=== PATIENT | male | born 1940 | race Caucasian/White ===

== ENCOUNTER 2023-09-24 15:01 | Inpatient (IN) | payer MEDICARE, SELFPAY ==
[2023-09-24 17:38] LABS: Estimated Glomerular Filt Rate 50
[2023-09-24] MEDS: SACUBITRIL/VALSARTAN 24-26 MG TABLET 0.5 TAB PO (21:46)
[2023-09-24] MEDS: CIPROFLOXACIN 500 MG TAB PO (21:47)
[2023-09-25] VITALS: BP 143/86; PULSE 84; RESP 16; TEMP 37.1; O2SAT 97
[2023-09-25 08:00] VITALS: BP 131/86; PULSE 84; RESP 16; TEMP 36.8; O2SAT 98
[2023-09-25 08:44] VITALS: PULSE 84
[2023-09-25] MEDS: SACUBITRIL/VALSARTAN 24-26 MG TABLET 0.5 TAB PO ×2 (08:44→20:56)
[2023-09-25] MEDS: METOPROLOL SUCCINATE EXT REL 25 MG TABCR PO (08:44)
[2023-09-25] MEDS: CHOLECALCIFEROL 1,000 UNITS TABLET 4000 UNITS PO (08:45)
[2023-09-25] MEDS: CIPROFLOXACIN 500 MG TAB PO ×2 (08:46→20:56)
[2023-09-25] MEDS: ASPIRIN 325 MG ENTERIC TABLET PO (08:46)
[2023-09-25] MEDS: SIMVASTATIN 10 MG TABLET 20 MG PO (08:46)
[2023-09-25] MEDS: allopurinoL 300 MG TABLET PO (08:47)
--- NOTE | 2023-09-25 10:41 | PM.IMHP ---
H&P: HPI History of Present Illness Date/Time: 09/25/23 10:41 Chief Complaint: Rhabdomyolysis, fall, weakness Narrative: This is an 82 year old male with a past medical history of prostate cancer status radiation, gout, HTN, HLD, stroke with left sided residual, and kidney stones who presented to a hospital in [place] via EMS after being found down at home by his friend. According to Mr Jesse, he fell in his bathroom, unable to get up and laid there until he was found the following day by his friend. From [facility] he was transferred to [facility] with a diagnosis of rhabdomyolysis, elevated troponin, and ROSA. During his hospitalization he was treated with IV fluids and IV zosyn for pseudomonas bacteremia, transitioning to a 10 day course of ciprofloxacin. His troponin was elevated at 10.98 without associated chest pain. Elevation thought to be demand ischemia secondary to rhabdomyolysis and he underwent an echocardiogram showing an EF of 30-35%. He was also found to have a mild thrombocytopenia. He was discharged to [facility] for further therapy for deconditioning and associated weakness. He is seen today appearing well. He is pleasant and appears a good historian. He says that he is seeing some improvement with his strength as he was unable to raise his arms last week. His only complaints are generalized weakness and arthritis pain aggravated by the weather . He states that he normally lives at home alone and uses an electric scooter for transportation. He normally is able to take a couple of steps to transfer to the car. He also has an electric lift chair. His friend Michael Borrero' Masoud and his niece, Justin are his emergency contacts. Overnight the nurse found a small, hard deposit at the end of his penis that appears to be a kidney stone. The patient does have a frequent history of stone formation. The patient denies any pain associated with passing this stone. Review of Systems Review of Systems: All systems reviewed & are unremarkable except as noted in HPI and below [facility] Past Medical History Medical History (Updated 09/25/23 @ 15:20 by Criselda Macias APRN) CVA (cerebral vascular accident) Fall Gout HLD (hyperlipidemia) HTN (hypertension) Kidney stones Prostate cancer Surgical History Surgical History (Updated 09/25/23 @ 15:08 by Criselda Macias APRN) History of appendectomy Family History Family History (Updated 09/25/23 @ 15:10 by Criselda Macias APRN) Mother Heart disease Father Lung cancer Other Alzheimer's dementia Social History Social History (Updated 09/25/23 @ 15:10 by Criselda Macias APRN) Social History: 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 Smoking status: Never smoker Second hand tobacco smoke exposure: Yes (second hand smoke as a child) Alcohol intake: never Substance use: never Do You Feel Safe in your Home?: Yes Lack of Transportation: No Lack of Food: Never True Current Housing: I Have Housing Concerned About Future Housing: No Difficulty Paying Gas/Electric Bills: No Difficulty Paying for Meds: No Currently Unemployed: No Education: High School Diploma/GED Difficulty w/ Childcare or Family Care: No Spiritual care concerns: No Meds Home Medications and Allergies Home Medications Medication Instructions Recorded Confirmed Type allopurinol 300 mg tablet 300 mg PO DAILY 09/24/23 09/24/23 History aspirin 325 mg tablet 325 mg PO DAILY 09/24/23 09/24/23 History cholecalciferol (vitamin D3) 50 100 mcg PO DAILY 09/24/23 09/24/23 History mcg (2,000 unit) tablet (Vitamin D3) ciprofloxacin HCl 500 mg tablet 500 mg PO Q12H 09/24/23 09/24/23 History (Cipro) metoprolol succinate 25 mg 25 mg PO DAILY 09/24/23 09/24/23 History tablet,extended release 24 hr sacubitril 24 mg-valsartan 26 mg 0.5 tablet PO BID 09/24/23 09/24/23 History tablet (Entresto) simvastatin 20 mg tablet 20 mg PO DAILY 0
[2023-09-25 15:39] VITALS: BP 122/76; PULSE 67; RESP 18; TEMP 36.2; O2SAT 97
[2023-09-25 15:56] LABS: Hematocrit 36.2 % (37.0-46.0); Hemoglobin 11.5 g/dL (12.4-15.3); Mean Corpuscular HGB Conc 31.8 g/dL (32.0-36.0); Mean Corpuscular Hemoglobin 30.1 pg (27.0-31.0); Mean Corpuscular Volume 94.8 fL (78.0-102.0); Mean Platelet Volume 12.6 fl (8.7-11.0); Platelet Count Result 128 K/mm3 (150-420); Red Blood Count 3.82 M/mm3 (4.70-6.10); Red Cell Distribution Width 13.1 % (11.6-14.4); White Blood Count 7.1 K/mm3 (4.8-10.8)
[2023-09-25 20:00] VITALS: PULSE 72; RESP 18; O2SAT 98
--- NOTE | 2023-09-25 21:00 | PC.NURSE ---
Pt in bed upon assessment, watching TV, alert, SCD's obtained and placed on pt as per order. Pt reports SCD's feel good on his legs p applying. Pt turned self to side and cleaned of dirty depend. Pt able to assist in turning self from side to side, new mepilex placed on coccyx for prevention, noted slight reddened area to coccyx. Pt given urinal and he is noted able to use urinal per self. Call rehman at pt side.
[2023-09-25 23:51] VITALS: BP 110/63; PULSE 72; RESP 18; TEMP 36.6; O2SAT 98
[2023-09-26 07:50] VITALS: BP 139/60; PULSE 82; RESP 16; TEMP 36.9; O2SAT 97
[2023-09-26] MEDS: ENOXAPARIN 30 MG/0.3 ML SYRINGE SUB-Q (09:25)
[2023-09-26 09:26] VITALS: PULSE 82
[2023-09-26] MEDS: METOPROLOL SUCCINATE EXT REL 25 MG TABCR PO (09:26)
[2023-09-26] MEDS: CHOLECALCIFEROL 1,000 UNITS TABLET 4000 UNITS PO (09:26)
[2023-09-26] MEDS: ASPIRIN 325 MG ENTERIC TABLET PO (09:26)
[2023-09-26] MEDS: allopurinoL 300 MG TABLET PO (09:26)
[2023-09-26] MEDS: CIPROFLOXACIN 500 MG TAB PO ×2 (09:26→21:42)
[2023-09-26] MEDS: SACUBITRIL/VALSARTAN 24-26 MG TABLET 0.5 TAB PO ×2 (09:27→21:41)
[2023-09-26 16:00] VITALS: BP 149/85; PULSE 72; RESP 18; TEMP 36.4; O2SAT 96
[2023-09-27] VITALS: BP 137/78; PULSE 81; RESP 16; TEMP 36.8; O2SAT 96
[2023-09-27 08:00] VITALS: BP 113/73; PULSE 96; RESP 17; TEMP 37.2; O2SAT 96
[2023-09-27] MEDS: polyethylene glycoL 3350 17 GM POWD.PACK PO (09:53)
[2023-09-27] MEDS: ENOXAPARIN 30 MG/0.3 ML SYRINGE SUB-Q (09:53)
[2023-09-27] MEDS: CHOLECALCIFEROL 1,000 UNITS TABLET 4000 UNITS PO (09:53)
[2023-09-27 09:54] VITALS: PULSE 84
[2023-09-27] MEDS: ASPIRIN 325 MG ENTERIC TABLET PO (09:54)
[2023-09-27] MEDS: METOPROLOL SUCCINATE EXT REL 25 MG TABCR PO (09:54)
[2023-09-27] MEDS: CIPROFLOXACIN 500 MG TAB PO ×2 (09:54→21:28)
[2023-09-27] MEDS: allopurinoL 300 MG TABLET PO (09:54)
[2023-09-27] MEDS: SACUBITRIL/VALSARTAN 24-26 MG TABLET 0.5 TAB PO ×2 (09:55→21:28)
[2023-09-27 16:00] VITALS: BP 154/90; PULSE 74; RESP 16; TEMP 36.8; O2SAT 98
[2023-09-28] VITALS: BP 155/86; PULSE 81; RESP 16; TEMP 36.6; O2SAT 97
[2023-09-28 08:00] VITALS: BP 128/58; PULSE 76; RESP 17; TEMP 36.6; O2SAT 97
[2023-09-28 09:54] VITALS: PULSE 74
[2023-09-28] MEDS: polyethylene glycoL 3350 17 GM POWD.PACK PO (09:54)
[2023-09-28] MEDS: allopurinoL 300 MG TABLET PO (09:54)
[2023-09-28] MEDS: CHOLECALCIFEROL 1,000 UNITS TABLET 4000 UNITS PO (09:54)
[2023-09-28] MEDS: METOPROLOL SUCCINATE EXT REL 25 MG TABCR PO (09:54)
[2023-09-28] MEDS: ENOXAPARIN 30 MG/0.3 ML SYRINGE SUB-Q (09:55)
[2023-09-28] MEDS: CIPROFLOXACIN 500 MG TAB PO ×2 (09:55→20:40)
[2023-09-28] MEDS: ASPIRIN 325 MG ENTERIC TABLET PO (09:55)
[2023-09-28] MEDS: SACUBITRIL/VALSARTAN 24-26 MG TABLET 0.5 TAB PO ×2 (09:55→20:39)
[2023-09-28 16:00] VITALS: BP 148/91; PULSE 66; RESP 18; TEMP 36.3; O2SAT 100
[2023-09-29] VITALS: BP 150/75; PULSE 64; RESP 16; TEMP 36.7; O2SAT 98
[2023-09-29 08:00] VITALS: BP 128/64; PULSE 68; RESP 17; TEMP 36.6; O2SAT 97
[2023-09-29] MEDS: CHOLECALCIFEROL 1,000 UNITS TABLET 4000 UNITS PO (10:15)
[2023-09-29] MEDS: ENOXAPARIN 30 MG/0.3 ML SYRINGE SUB-Q (10:15)
[2023-09-29] MEDS: allopurinoL 300 MG TABLET PO (10:16)
[2023-09-29] MEDS: CIPROFLOXACIN 500 MG TAB PO ×2 (10:16→21:54)
[2023-09-29] MEDS: ASPIRIN 325 MG ENTERIC TABLET PO (10:16)
[2023-09-29] MEDS: SACUBITRIL/VALSARTAN 24-26 MG TABLET 0.5 TAB PO ×2 (10:16→21:54)
[2023-09-29 10:17] VITALS: PULSE 68
[2023-09-29] MEDS: METOPROLOL SUCCINATE EXT REL 25 MG TABCR PO (10:17)
[2023-09-29] MEDS: polyethylene glycoL 3350 17 GM POWD.PACK PO (10:17)
[2023-09-29 16:00] VITALS: BP 143/79; PULSE 93; RESP 17; TEMP 36.2; O2SAT 98
[2023-09-30] VITALS: BP 152/88; PULSE 71; RESP 16; TEMP 36.3; O2SAT 97
[2023-09-30 05:45] LABS: Alanine Aminotransferase 40 U/L (16-63); Alkaline Phosphatase 72 U/L (46-116); Anion Gap 7 mmol/L (8-16); Aspartate Amino Transferase 26 U/L (15-37); Bilirubin,Total 0.3 mg/dL (0.00-1.00); Blood Urea Nitrogen 29 mg/dL (7-18); Calcium 8.3 mg/dL (8.5-10.1); Carbon Dioxide 26 mmol/L (21-32); Chloride 108 mmol/L (98-108); Estimated CRCL calculation 48 ml/min; Estimated Glomerular Filt Rate > 60; Glucose 110 mg/dL (70-99); Osmolality Calculated 298 mOsm/kg (285-295); Potassium 4.1 mmol/L (3.5-5.1); Sodium 141 mmol/L (136-145); Total Protein 5.5 g/dL (6.4-8.2)
[2023-09-30 08:00] VITALS: BP 138/74; PULSE 61; RESP 18; TEMP 36.5; O2SAT 98
[2023-09-30] MEDS: ASPIRIN 325 MG ENTERIC TABLET PO (09:22)
[2023-09-30] MEDS: ENOXAPARIN 30 MG/0.3 ML SYRINGE SUB-Q (09:22)
[2023-09-30] MEDS: CHOLECALCIFEROL 1,000 UNITS TABLET 4000 UNITS PO (09:22)
[2023-09-30 09:23] VITALS: PULSE 68
[2023-09-30] MEDS: allopurinoL 300 MG TABLET PO (09:23)
[2023-09-30] MEDS: METOPROLOL SUCCINATE EXT REL 25 MG TABCR PO (09:23)
[2023-09-30] MEDS: CIPROFLOXACIN 500 MG TAB PO ×2 (09:23→20:55)
[2023-09-30] MEDS: SACUBITRIL/VALSARTAN 24-26 MG TABLET 0.5 TAB PO ×2 (09:23→20:55)
[2023-09-30] MEDS: polyethylene glycoL 3350 17 GM POWD.PACK PO (09:26)
[2023-09-30 16:00] VITALS: BP 110/68; PULSE 79; RESP 18; TEMP 36.1; O2SAT 98
--- NOTE | 2023-09-30 16:08 | PM.EVENT ---
Event Note Event Note Event Note: Labs reviewed today. ROSA from rhabdo has resolved.
[2023-09-30] MEDS: DOCUSATE SODIUM 100 MG CAPSULE PO (20:55)
[2023-10-01] VITALS: BP 145/82; PULSE 63; RESP 18; TEMP 36.4; O2SAT 97
[2023-10-01 08:00] VITALS: BP 129/69; PULSE 65; RESP 18; TEMP 36.4; O2SAT 98
[2023-10-01] MEDS: polyethylene glycoL 3350 17 GM POWD.PACK PO (09:20)
[2023-10-01] MEDS: CHOLECALCIFEROL 1,000 UNITS TABLET 4000 UNITS PO (09:20)
[2023-10-01 09:21] VITALS: PULSE 72
[2023-10-01] MEDS: METOPROLOL SUCCINATE EXT REL 25 MG TABCR PO (09:21)
[2023-10-01] MEDS: allopurinoL 300 MG TABLET PO (09:21)
[2023-10-01] MEDS: BISACODYL 5 MG TABLET EC PO (09:21)
[2023-10-01] MEDS: ENOXAPARIN 30 MG/0.3 ML SYRINGE SUB-Q (09:21)
[2023-10-01] MEDS: ASPIRIN 325 MG ENTERIC TABLET PO (09:22)
[2023-10-01] MEDS: SACUBITRIL/VALSARTAN 24-26 MG TABLET 0.5 TAB PO ×2 (09:22→20:35)
[2023-10-01] MEDS: CIPROFLOXACIN 500 MG TAB PO ×2 (09:22→20:36)
[2023-10-01] MEDS: DOCUSATE SODIUM 100 MG CAPSULE PO ×2 (09:22→20:36)
[2023-10-01] MEDS: SIMVASTATIN 10 MG TABLET 20 MG PO (09:39)
[2023-10-01 15:57] VITALS: BP 132/63; PULSE 66; RESP 16; TEMP 36.2; O2SAT 99
[2023-10-02] VITALS: BP 140/76; PULSE 57; RESP 16; TEMP 36.4; O2SAT 98
[2023-10-02 08:00] VITALS: BP 124/65; PULSE 76; RESP 18; TEMP 36.6; O2SAT 97
[2023-10-02] MEDS: ENOXAPARIN 30 MG/0.3 ML SYRINGE SUB-Q (09:42)
[2023-10-02] MEDS: polyethylene glycoL 3350 17 GM POWD.PACK PO (09:42)
[2023-10-02] MEDS: DOCUSATE SODIUM 100 MG CAPSULE PO (09:42)
[2023-10-02] MEDS: SACUBITRIL/VALSARTAN 24-26 MG TABLET 0.5 TAB PO ×2 (09:42→21:54)
[2023-10-02] MEDS: CHOLECALCIFEROL 1,000 UNITS TABLET 4000 UNITS PO (09:42)
[2023-10-02] MEDS: ASPIRIN 325 MG ENTERIC TABLET PO (09:42)
[2023-10-02 09:43] VITALS: PULSE 68
[2023-10-02] MEDS: CIPROFLOXACIN 500 MG TAB PO ×2 (09:43→21:55)
[2023-10-02] MEDS: allopurinoL 300 MG TABLET PO (09:43)
[2023-10-02] MEDS: BISACODYL 5 MG TABLET EC PO (09:43)
[2023-10-02] MEDS: METOPROLOL SUCCINATE EXT REL 25 MG TABCR PO (09:43)
[2023-10-02] MEDS: SIMVASTATIN 10 MG TABLET 20 MG PO (09:43)
--- NOTE | 2023-10-02 11:27 | PM.IMPN ---
Progress Note: A&P Assessment and Plan (1) Weakness: Code(s): R53.1 - Weakness Status: Acute Assessment and Plan: A status post fall at home with recent hospitalization for rhabdomyolysis -PT OT consult -admitted to swing bed -fall precautions (2) Bacteremia due to Pseudomonas: Code(s): R78.81 - Bacteremia; B96.5 - Pseudomonas (aeruginosa) (mallei) (pseudomallei) as the cause of diseases classified elsewhere Status: Acute Assessment and Plan: Patient remains on Cipro through 10/03 (3) Rhabdomyolysis: Code(s): M62.82 - Rhabdomyolysis Status: Resolved Assessment and Plan: CK level has cleared, ROSA has cleared. Plan Feeding: Heart healthy diet Analgesia: Tylenol Thromboembolic prophylaxis: SCD's. Checking platelets now. Will start Lovenox if appropriate. Ulcer prophylaxis: Glycemic control: Bowel regimen: prn miralax Lines: Antibiotics: Cipro through 10/03 for pseudomonas bacteremia Disposition: Home Time Spent With Patient Time with patient: 15 - 25 minutes Subjective Date/time seen: 10/02/23 11:27 Interval history: 09/24: This is an 82 year old male with a past medical history of prostate cancer status radiation, gout, HTN, HLD, stroke with left sided residual, and kidney stones who presented to a hospital in [place] via EMS after being found down at home by his friend. According to Mr Molina, he fell in his bathroom, unable to get up and laid there until he was found the following day by his friend. From [facility] he was transferred to [facility] with a diagnosis of rhabdomyolysis, elevated troponin, and ROSA. During his hospitalization he was treated with IV fluids and IV zosyn for pseudomonas bacteremia, transitioning to a 10 day course of ciprofloxacin. His troponin was elevated at 10.98 without associated chest pain. Elevation thought to be demand ischemia secondary to rhabdomyolysis and he underwent an echocardiogram showing an EF of 30-35%. He was also found to have a? mild thrombocytopenia. He was discharged to [facility] for further therapy for deconditioning and associated weakness. He is seen today appearing well. He is pleasant and appears a good historian. He says that he is seeing some improvement with his strength as he was unable to raise his arms last week. His only complaints are generalized weakness and arthritis pain aggravated by the weather . He states that he normally lives at home alone and uses an electric scooter for transportation. He normally is able to take a couple of steps to transfer to the car. He also has an electric lift chair. His friend Michael Meredith (Andy) and his niece, Justin are his emergency contacts. Overnight the nurse found a small, hard deposit at the end of his penis that appears to be a kidney stone. The patient does have a frequent history of stone formation. The patient denies any pain associated with passing this stone. 09/29: Labs reviewed today.? ROSA from rhabdo has resolved. 10/01: Patient denies any current pain. He is still expecting to be here for at least another week. Nursing staff states that patient has still been requiring use of Dia Steady to transfer due to prior stroke deficits. pharmacy recommended repeat CBC to check platelets and hemoglobin since patient is on Lovenox DVT prophylaxis, results are stable. Review of Systems Review of Systems: All systems reviewed & are unremarkable except as noted in HPI and below Exam Narrative: General: well appearing, well developed, well nourished, appears stated age. HEENT: normocephalic, atraumatic. Mucous membranes moist. EOMI, PERRLA, bilateral sclera anicteric, no conjunctival injection. Neck supple without JVD, lymphadenopathy, or bruit. Respiratory: clear to auscultation but diminished bilaterally. No rales/rhonic/wheezes. Cardiovascular: Regular rate and rhythm, normal S1-S2 upon auscultation. No murmurs, rubs, or clicks. PMI is
[2023-10-02 11:51] LABS: Hematocrit 36.1 % (37.0-46.0); Hemoglobin 11.6 g/dL (12.4-15.3); Mean Corpuscular HGB Conc 32.1 g/dL (32-36); Mean Corpuscular Hemoglobin 29.7 pg (27.0-31.0); Mean Corpuscular Volume 92.6 fL (78.0-102.0); Platelet Count Result 241 K/mm3 (150-420); Red Cell Distribution Width 13.1 % (11.6-14.4); White Blood Count 5.3 K/mm3 (4.8-10.8)
[2023-10-02 12:09] LABS: Anion Gap 10 mmol/L (8-16); Blood Urea Nitrogen 31 mg/dL (7-18); Calcium 8.9 mg/dL (8.5-10.1); Carbon Dioxide 25 mmol/L (21-32); Chloride 105 mmol/L (98-108); Creatine Kinase 43 U/L (39-308); Estimated CRCL calculation 44 ml/min; Estimated Glomerular Filt Rate 55; Glucose 114 mg/dL (70-99); Osmolality Calculated 297 mOsm/kg (285-295); Potassium 4.5 mmol/L (3.5-5.1); Sodium 140 mmol/L (136-145)
[2023-10-02 16:00] VITALS: BP 119/68; PULSE 82; RESP 16; TEMP 36.1; O2SAT 98
[2023-10-03] VITALS: BP 120/89; PULSE 66; RESP 16; TEMP 36.5; O2SAT 97
[2023-10-03 08:00] VITALS: BP 136/73; PULSE 100; RESP 24; TEMP 36.1; O2SAT 100
[2023-10-03 09:11] VITALS: PULSE 82
[2023-10-03] MEDS: CIPROFLOXACIN 500 MG TAB PO ×2 (09:11→20:25)
[2023-10-03] MEDS: ENOXAPARIN 40 MG/0.4 ML SYRINGE SUB-Q (09:11)
[2023-10-03] MEDS: METOPROLOL SUCCINATE EXT REL 25 MG TABCR PO (09:11)
[2023-10-03] MEDS: ASPIRIN 325 MG ENTERIC TABLET PO (09:11)
[2023-10-03] MEDS: allopurinoL 300 MG TABLET PO (09:11)
[2023-10-03] MEDS: CHOLECALCIFEROL 1,000 UNITS TABLET 4000 UNITS PO (09:11)
[2023-10-03] MEDS: SIMVASTATIN 10 MG TABLET 20 MG PO (09:12)
[2023-10-03] MEDS: SACUBITRIL/VALSARTAN 24-26 MG TABLET 0.5 TAB PO ×2 (09:12→20:24)
[2023-10-03 16:00] VITALS: BP 125/66; PULSE 72; RESP 16; TEMP 36.4
[2023-10-04] VITALS: BP 130/66; PULSE 78; RESP 14; TEMP 36.6; O2SAT 96
[2023-10-04 08:00] VITALS: BP 106/62; PULSE 75; RESP 16; TEMP 36.2; O2SAT 98
[2023-10-04] MEDS: ENOXAPARIN 40 MG/0.4 ML SYRINGE SUB-Q (09:29)
[2023-10-04] MEDS: SIMVASTATIN 10 MG TABLET 20 MG PO (09:30)
[2023-10-04] MEDS: ASPIRIN 325 MG ENTERIC TABLET PO (09:30)
[2023-10-04] MEDS: SACUBITRIL/VALSARTAN 24-26 MG TABLET 0.5 TAB PO ×2 (09:31→20:48)
[2023-10-04] MEDS: CHOLECALCIFEROL 1,000 UNITS TABLET 4000 UNITS PO (09:31)
[2023-10-04 09:32] VITALS: PULSE 75
[2023-10-04] MEDS: CIPROFLOXACIN 500 MG TAB PO ×2 (09:32→20:48)
[2023-10-04] MEDS: allopurinoL 300 MG TABLET PO (09:32)
[2023-10-04] MEDS: METOPROLOL SUCCINATE EXT REL 25 MG TABCR PO (09:32)
[2023-10-04 16:00] VITALS: BP 110/66; PULSE 62; RESP 16; TEMP 36.1; O2SAT 98
[2023-10-05] VITALS: BP 129/68; PULSE 65; RESP 20; TEMP 36.8; O2SAT 97
[2023-10-05 08:00] VITALS: BP 126/67; PULSE 74; RESP 18; TEMP 36.3; O2SAT 97
[2023-10-05] MEDS: ASPIRIN 325 MG ENTERIC TABLET PO (09:25)
[2023-10-05] MEDS: ENOXAPARIN 40 MG/0.4 ML SYRINGE SUB-Q (09:25)
[2023-10-05] MEDS: allopurinoL 300 MG TABLET PO (09:25)
[2023-10-05] MEDS: CHOLECALCIFEROL 1,000 UNITS TABLET 4000 UNITS PO (09:25)
[2023-10-05] MEDS: SIMVASTATIN 10 MG TABLET 20 MG PO (09:25)
[2023-10-05 09:26] VITALS: PULSE 72
[2023-10-05] MEDS: METOPROLOL SUCCINATE EXT REL 25 MG TABCR PO (09:26)
[2023-10-05] MEDS: SACUBITRIL/VALSARTAN 24-26 MG TABLET 0.5 TAB PO ×2 (09:26→20:28)
[2023-10-05 16:00] VITALS: BP 142/68; PULSE 64; RESP 18; TEMP 36.3; O2SAT 97
[2023-10-05 20:00] VITALS: PULSE 64; RESP 18; O2SAT 97
[2023-10-06] VITALS: BP 122/64; PULSE 61; RESP 17; TEMP 36.4; O2SAT 96
[2023-10-06 08:00] VITALS: BP 130/64; PULSE 64; RESP 18; TEMP 36.3; O2SAT 98
[2023-10-06 09:51] VITALS: PULSE 62
[2023-10-06] MEDS: CHOLECALCIFEROL 1,000 UNITS TABLET 4000 UNITS PO (09:51)
[2023-10-06] MEDS: allopurinoL 300 MG TABLET PO (09:51)
[2023-10-06] MEDS: SACUBITRIL/VALSARTAN 24-26 MG TABLET 0.5 TAB PO ×2 (09:51→19:45)
[2023-10-06] MEDS: ENOXAPARIN 40 MG/0.4 ML SYRINGE SUB-Q (09:51)
[2023-10-06] MEDS: METOPROLOL SUCCINATE EXT REL 25 MG TABCR PO (09:51)
[2023-10-06] MEDS: ASPIRIN 325 MG ENTERIC TABLET PO (09:51)
[2023-10-06] MEDS: SIMVASTATIN 10 MG TABLET 20 MG PO (09:51)
[2023-10-06 16:00] VITALS: BP 140/74; PULSE 60; RESP 16; TEMP 36.4; O2SAT 98
[2023-10-06 20:00] VITALS: PULSE 60; RESP 16; O2SAT 98
[2023-10-07] VITALS: BP 130/85; PULSE 64; RESP 16; TEMP 36.4; O2SAT 99
[2023-10-07 08:00] VITALS: BP 147/70; PULSE 66; RESP 16; TEMP 36.6; O2SAT 98
[2023-10-07] MEDS: ENOXAPARIN 40 MG/0.4 ML SYRINGE SUB-Q (09:05)
[2023-10-07] MEDS: ASPIRIN 325 MG ENTERIC TABLET PO (09:05)
[2023-10-07] MEDS: SIMVASTATIN 10 MG TABLET 20 MG PO (09:05)
[2023-10-07 09:06] VITALS: PULSE 68
[2023-10-07] MEDS: CHOLECALCIFEROL 1,000 UNITS TABLET 4000 UNITS PO (09:06)
[2023-10-07] MEDS: SACUBITRIL/VALSARTAN 24-26 MG TABLET 0.5 TAB PO ×2 (09:06→20:06)
[2023-10-07] MEDS: allopurinoL 300 MG TABLET PO (09:06)
[2023-10-07] MEDS: METOPROLOL SUCCINATE EXT REL 25 MG TABCR PO (09:06)
--- NOTE | 2023-10-07 14:31 | PM.IMPN ---
Progress Note: A&P Assessment and Plan (1) Weakness: Code(s): R53.1 - Weakness Status: Acute Assessment and Plan: A status post fall at home with recent hospitalization for rhabdomyolysis -PT OT consult -admitted to swing bed -fall precautions (2) Bacteremia due to Pseudomonas: Code(s): R78.81 - Bacteremia; B96.5 - Pseudomonas (aeruginosa) (mallei) (pseudomallei) as the cause of diseases classified elsewhere Status: Acute Assessment and Plan: Completed course of antibiotics, no further infectious symptoms (3) Rhabdomyolysis: Code(s): M62.82 - Rhabdomyolysis Status: Resolved Assessment and Plan: CK level has cleared, ROSA has cleared. Plan Feeding: Heart healthy diet Analgesia: Tylenol Thromboembolic prophylaxis: SCD's and Lovenox Bowel regimen: added probiotic due to sustained loose stools Disposition: Home in the next week or so Time Spent With Patient Time with patient: 15 - 25 minutes Subjective Date/time seen: 10/07/23 14:31 Interval history: Patient doing quite well with therapy, big improvement in the past few days. Previously patient had been quite constipated but this passed with addition of multiple scheduled medications for stool softening. Patient is still having frequent soft stools. Will stop scheduled stool softeners as they have been held due to soft stools anyway. Add probiotic. Patient denies any needs at this time. Review of Systems Review of Systems: All systems reviewed & are unremarkable except as noted in HPI and below Exam Narrative: General: well appearing, well developed, well nourished, appears stated age. HEENT: normocephalic, atraumatic. Mucous membranes moist. EOMI, PERRLA, bilateral sclera anicteric, no conjunctival injection. Neck supple without JVD, lymphadenopathy, or bruit. Respiratory: clear to auscultation but diminished bilaterally. No rales/rhonic/wheezes. Cardiovascular: Regular rate and rhythm, normal S1-S2 upon auscultation. No murmurs, rubs, or clicks. PMI is nondisplaced, capillary re-fill less than 3 second. Abdomen: Soft, flat, no pulsatile masses, non-distended and non-tender. No rebound, no guarding. Extremities: No cyanosis, clubbing. Dependent edema to BLE. Pulses are palpable 2/2. Active ROM to all four extremities but generally weak. Neuro: Alert and orientated x 4. PERRLA. Cranial nerves 2-12 intact without focal deficit. Skin: Warm, dry, and intact, without rash, erythema, or lesion. Generalized bruising and thin skin. Psych: pleasant, cooperative, normal speech, normal affect, no hallucinations, no dysarthria Objective Data Vital Signs Vital Signs: Vital Signs - 24 hr 10/06/23 16:00 10/06/23 20:00 10/07/23 00:00 Temperature 36.4 C L 36.4 C Pulse Rate 60 60 64 Respiratory Rate 16 16 16 Blood Pressure 140/74 130/85 Pulse Oximetry 98 98 99 Oxygen Delivery Room Air Room Air Room Air 10/07/23 08:00 10/07/23 09:06 Temperature 36.6 C Pulse Rate 66 68 Respiratory Rate 16 Blood Pressure 147/70 H Pulse Oximetry 98 Oxygen Delivery Room Air Intake/Output Intake/Output: Intake & Output 10/04/23 10/05/23 10/06/23 10/07/23 23:59 23:59 23:59 23:59 Intake Total 1725 1370 1770 960 Output Total 800 1525 2400 1000 Balance 925 -155 -630 -40 Meds/Results Medications: Active Medications Generic Name Dose Route Start Last Admin Trade Name Freq PRN Reason Stop Dose Admin Acetaminophen 650 mg 09/25/23 15:23 Acetaminophen 325 Mg Tablet PO Q4H PRN Mild Pain (1-3) or Fever Allopurinol 300 mg 09/25/23 09:00 10/07/23 09:06 Allopurinol 300 Mg Tablet PO 300 mg DAILY SHERMAN Administration Aspirin 325 mg 09/25/23 09:00 10/07/23 09:05 Aspirin 325 Mg Enteric Tablet PO 10/25/23 08:59 325 mg DAILY SHERMAN Administration Bisacodyl 10 mg 09/30/23 09:21 Bisacodyl 10 Mg Suppository RECTAL QAM PRN Constipation Bisacodyl 5 mg 10/02
[2023-10-07 16:00] VITALS: BP 125/66; PULSE 60; RESP 16; TEMP 36.3; O2SAT 98
[2023-10-07] MEDS: SACCHAROMYCES BOULARDII 250 MG CAPSULE PO (17:46)
[2023-10-07 20:00] VITALS: PULSE 60; RESP 16; O2SAT 98
[2023-10-08] VITALS: BP 133/89; PULSE 61; RESP 16; TEMP 36.6; O2SAT 97
[2023-10-08 07:31] VITALS: BP 126/75; PULSE 69; RESP 16; TEMP 36.1; O2SAT 98
[2023-10-08] MEDS: CHOLECALCIFEROL 1,000 UNITS TABLET 4000 UNITS PO (08:13)
[2023-10-08 08:14] VITALS: PULSE 69
[2023-10-08] MEDS: SACCHAROMYCES BOULARDII 250 MG CAPSULE PO ×3 (08:14→16:55)
[2023-10-08] MEDS: ASPIRIN 325 MG ENTERIC TABLET PO (08:14)
[2023-10-08] MEDS: METOPROLOL SUCCINATE EXT REL 25 MG TABCR PO (08:14)
[2023-10-08] MEDS: SACUBITRIL/VALSARTAN 24-26 MG TABLET 0.5 TAB PO ×2 (08:15→20:07)
[2023-10-08] MEDS: SIMVASTATIN 10 MG TABLET 20 MG PO (08:16)
[2023-10-08] MEDS: allopurinoL 300 MG TABLET PO (08:16)
[2023-10-08] MEDS: ENOXAPARIN 40 MG/0.4 ML SYRINGE SUB-Q (08:16)
--- NOTE | 2023-10-08 11:44 | PC.NURSE ---
Nurses Npte: Critical glucose lab reported to [facility], plan to address changes to insulin as pt not responding to 70/30.
[2023-10-08 16:35] VITALS: BP 153/81; PULSE 62; RESP 16; TEMP 36.2; O2SAT 98
[2023-10-09] VITALS: BP 127/71; PULSE 66; RESP 14; TEMP 36.6; O2SAT 98
[2023-10-09 07:23] VITALS: BP 130/73; PULSE 66; RESP 16; TEMP 36.8; O2SAT 97
[2023-10-09] MEDS: CHOLECALCIFEROL 1,000 UNITS TABLET 4000 UNITS PO (08:00)
[2023-10-09] MEDS: ENOXAPARIN 40 MG/0.4 ML SYRINGE SUB-Q (08:30)
[2023-10-09] MEDS: SACUBITRIL/VALSARTAN 24-26 MG TABLET 0.5 TAB PO ×2 (08:30→19:56)
[2023-10-09] MEDS: allopurinoL 300 MG TABLET PO (08:31)
[2023-10-09 08:32] VITALS: PULSE 66
[2023-10-09] MEDS: METOPROLOL SUCCINATE EXT REL 25 MG TABCR PO (08:32)
[2023-10-09] MEDS: SIMVASTATIN 10 MG TABLET 20 MG PO (08:32)
[2023-10-09] MEDS: SACCHAROMYCES BOULARDII 250 MG CAPSULE PO ×3 (08:32→16:24)
[2023-10-09] MEDS: ASPIRIN 325 MG ENTERIC TABLET PO (08:33)
[2023-10-09 16:00] VITALS: BP 150/70; PULSE 56; RESP 16; TEMP 36.6; O2SAT 98
[2023-10-10] VITALS: BP 147/69; PULSE 66; RESP 20; TEMP 36.4; O2SAT 99
[2023-10-10 08:00] VITALS: BP 151/72; PULSE 60; RESP 16; TEMP 36.4; O2SAT 98
[2023-10-10] MEDS: CHOLECALCIFEROL 1,000 UNITS TABLET 4000 UNITS PO (09:17)
[2023-10-10 09:18] VITALS: PULSE 60
[2023-10-10] MEDS: ENOXAPARIN 40 MG/0.4 ML SYRINGE SUB-Q (09:18)
[2023-10-10] MEDS: SACUBITRIL/VALSARTAN 24-26 MG TABLET 0.5 TAB PO ×2 (09:18→20:46)
[2023-10-10] MEDS: SIMVASTATIN 10 MG TABLET 20 MG PO (09:18)
[2023-10-10] MEDS: SACCHAROMYCES BOULARDII 250 MG CAPSULE PO ×3 (09:18→16:51)
[2023-10-10] MEDS: METOPROLOL SUCCINATE EXT REL 25 MG TABCR PO (09:18)
[2023-10-10] MEDS: ASPIRIN 325 MG ENTERIC TABLET PO (09:18)
[2023-10-10] MEDS: allopurinoL 300 MG TABLET PO (09:18)
[2023-10-10 16:00] VITALS: BP 130/66; PULSE 60; RESP 18; TEMP 36.6; O2SAT 98
[2023-10-11] VITALS: BP 133/69; PULSE 69; RESP 16; TEMP 36.6; O2SAT 97
--- NOTE | 2023-10-11 05:15 | PC.NURSE ---
Patient was sitting on the bedside commode when shift began. He walked with a GB, WW, and stand by assist to the bed. Patient had a large bowel movement. Patient uses a condom catheter at night, as he drips constantly and this allows him to sleep, and have dry skin. Patient slept well through the night, no complaints of pain. His vitals were WNL. Plans are for patient to discharge on Saturday, home w/ home health.
[2023-10-11 08:00] VITALS: BP 122/74; PULSE 78; RESP 18; TEMP 36.3; O2SAT 98
[2023-10-11] MEDS: ENOXAPARIN 40 MG/0.4 ML SYRINGE SUB-Q (09:06)
[2023-10-11 09:07] VITALS: PULSE 78
[2023-10-11] MEDS: SACCHAROMYCES BOULARDII 250 MG CAPSULE PO ×3 (09:07→16:56)
[2023-10-11] MEDS: METOPROLOL SUCCINATE EXT REL 25 MG TABCR PO (09:07)
[2023-10-11] MEDS: allopurinoL 300 MG TABLET PO (09:07)
[2023-10-11] MEDS: ASPIRIN 325 MG ENTERIC TABLET PO (09:07)
[2023-10-11] MEDS: CHOLECALCIFEROL 1,000 UNITS TABLET 4000 UNITS PO (09:07)
[2023-10-11] MEDS: SACUBITRIL/VALSARTAN 24-26 MG TABLET 0.5 TAB PO ×2 (09:07→20:47)
[2023-10-11] MEDS: SIMVASTATIN 10 MG TABLET 20 MG PO (09:07)
[2023-10-11 16:00] VITALS: BP 122/89; PULSE 61; RESP 16; TEMP 36.7; O2SAT 98
--- NOTE | 2023-10-11 19:54 | PC.NURSE ---
This RN asked the pt what he would prefer to use during the night for voiding. Pt stated he preferred the urinal over the male external catheter due to the catheter detaching at times causing him and the bed to be wet. This RN placed the urinal on the designated spot on the bed rail so that it is w/in reach of the pt.
[2023-10-12] VITALS: BP 127/65; PULSE 60; RESP 14; TEMP 36.4; O2SAT 97
[2023-10-12 07:40] VITALS: BP 111/73; PULSE 58; RESP 18; TEMP 36.3; O2SAT 98
[2023-10-12] MEDS: ENOXAPARIN 40 MG/0.4 ML SYRINGE SUB-Q (09:07)
[2023-10-12] MEDS: CHOLECALCIFEROL 1,000 UNITS TABLET 4000 UNITS PO (09:07)
[2023-10-12] MEDS: SACUBITRIL/VALSARTAN 24-26 MG TABLET 0.5 TAB PO ×2 (09:07→20:30)
[2023-10-12 09:08] VITALS: PULSE 58
[2023-10-12] MEDS: SACCHAROMYCES BOULARDII 250 MG CAPSULE PO ×3 (09:08→17:51)
[2023-10-12] MEDS: METOPROLOL SUCCINATE EXT REL 25 MG TABCR PO (09:08)
[2023-10-12] MEDS: ASPIRIN 325 MG ENTERIC TABLET PO (09:08)
[2023-10-12] MEDS: allopurinoL 300 MG TABLET PO (09:08)
[2023-10-12] MEDS: SIMVASTATIN 10 MG TABLET 20 MG PO (09:08)
[2023-10-12 16:35] VITALS: BP 140/70; PULSE 66; RESP 16; TEMP 36.2; O2SAT 97
[2023-10-12 23:03] VITALS: BP 143/75; PULSE 69; RESP 18; TEMP 36.6; O2SAT 98
[2023-10-13 08:00] VITALS: BP 100/55; PULSE 72; RESP 18; TEMP 36.2; O2SAT 97
[2023-10-13] MEDS: ENOXAPARIN 40 MG/0.4 ML SYRINGE SUB-Q (08:18)
[2023-10-13] MEDS: CHOLECALCIFEROL 1,000 UNITS TABLET 4000 UNITS PO (08:19)
[2023-10-13] MEDS: SACCHAROMYCES BOULARDII 250 MG CAPSULE PO ×3 (08:20→17:00)
[2023-10-13] MEDS: ASPIRIN 325 MG ENTERIC TABLET PO (08:20)
[2023-10-13] MEDS: SIMVASTATIN 10 MG TABLET 20 MG PO (08:20)
[2023-10-13 08:21] VITALS: PULSE 69
[2023-10-13] MEDS: allopurinoL 300 MG TABLET PO (08:21)
[2023-10-13] MEDS: METOPROLOL SUCCINATE EXT REL 25 MG TABCR PO (08:21)
[2023-10-13] MEDS: SACUBITRIL/VALSARTAN 24-26 MG TABLET 0.5 TAB PO ×2 (08:21→20:18)
[2023-10-13 16:00] VITALS: BP 146/76; PULSE 59; RESP 16; TEMP 36.4; O2SAT 98
[2023-10-13 19:54] VITALS: PULSE 59; RESP 16; O2SAT 98
[2023-10-14] VITALS: BP 136/89; PULSE 56; RESP 16; TEMP 36.8; O2SAT 98
[2023-10-14 08:00] VITALS: BP 144/70; PULSE 64; RESP 20; TEMP 37; O2SAT 98
--- NOTE | 2023-10-14 08:23 | PM.DS ---
DS: Admitting Diagnosis Discharge Date 10/14/23 Admitting Diagnosis weakness DS: Discharge Diagnosis Discharge Diagnosis (1) Weakness: Code(s): R53.1 - Weakness Status: Acute (2) Bacteremia due to Pseudomonas: Code(s): R78.81 - Bacteremia; B96.5 - Pseudomonas (aeruginosa) (mallei) (pseudomallei) as the cause of diseases classified elsewhere Status: Acute (3) Rhabdomyolysis: Code(s): M62.82 - Rhabdomyolysis Status: Resolved DS: Summary Hospital Course Reason for hospitalization: weakness Hospital Course: This is an 82-year-old male who presented to [facility] for rehab. Patient recently sustained a fall at home where a friend who came by found him down and sent him to [facility]. From [facility] he was transferred to [facility] with a diagnosis of rhabdomyolysis and was also treated for Pseudomonas bacteremia and was on IV Zosyn and then transition to a 10 day course of Cipro. He did have elevated troponin and acute kidney injury during that hospital stay. The elevated troponin was likely due to demand ischemia secondary to the rhabdomyolysis and he also had an echocardiogram showing an EF of 30-35%. He was discharged from [facility] to [facility] for further therapy for deconditioning and weakness. last set of labs on 10/02/2023 showed creatinine of 1.25, and an EGFR 55. All other labs were unremarkable at that time. On examination today patient is alert and oriented x3, sitting in chair. He denies any fever, chills, nausea, vomiting, diarrhea, abdominal pain, chest pain, shortness a breath, headache. He is stable for discharge at this time. He will follow up primary care physician in 1 week. [facility] home health services was arranged for continued PT and OT home. Final diagnosis: weakness, generalized deconditioning, bacteremia due to Pseudomonas, rhabdomyolysis Status at Discharge Cognitive/behavioral status at discharge: Alert oriented x3 Functional status at discharge: uses cane/walker Overall status at discharge: patient is progressing back to baseline Time Spent with Patient Time attestation: Total time spent providing and/or coordinating discharge services: Time spent: Greater than 30 minutes Exam Narrative: General: In no acute distress, well nourished Head: atraumatic, no encephalopathy Eyes: EOMI, PERRLA, sclera clear ENT: moist mucous membranes, nasal passages clear Neck: supple, no JVD, no adenopathy, trachea midline Cardiac: Normal S1 and S2. RRR, No murmur, gallops or friction rubs, peripheral pulses intact. Respiratory: Lungs clear to auscultation, no adventitious lung sounds, currently on room air Gastrointestinal: soft, non-distended, non-tender, normoactive bowel sounds. : voiding without difficulty. Extremities: moves all extremities well, no edema Skin: clean, dry, intact. No wounds or lesions. Neuro: Alert and oriented x4, cranial nerves intact, no neuro deficits. Psych: normal mood, normal affect, interactive DS: Data Data Completed and Pending Completed studies during hospitalization: none Pending studies at discharge: none Procedures/Treatments: none Discharge Plan Discharge Attending physician on discharge: Popeye Langley Discharging Clinician: Glenis Callejas Anticipated Discharge Date/Time: 10/14/23 08:20 Patient Disposition: Home Health Service Activity: as tolerated Diet: as tolerated Discharge Instructions: Per Care Coordination: [facility] Home Health will provide a nurse, PT and OT to follow you at home. RN to fax discharge summary to [phone]. A Senior Service referral has been made and they will call to set up a time to visit you to determine if you qualify. If you need to call them the number is [phone]. Patient Instructions: Fall Prevention for Older Adults (DC), Weakness (DC) Patient Language: Wolof Stand Alone Forms: General Disch
--- NOTE | 2023-10-14 08:34 | PC.NURSE ---
Patient prefers to make own PMD appointment for follow up, will need to secure a ride and find out what is available at the office for appointments
[2023-10-14 09:16] VITALS: PULSE 64
[2023-10-14] MEDS: SACCHAROMYCES BOULARDII 250 MG CAPSULE PO (09:16)
[2023-10-14] MEDS: allopurinoL 300 MG TABLET PO (09:16)
[2023-10-14] MEDS: ASPIRIN 325 MG ENTERIC TABLET PO (09:16)
[2023-10-14] MEDS: ENOXAPARIN 40 MG/0.4 ML SYRINGE SUB-Q (09:16)
[2023-10-14] MEDS: METOPROLOL SUCCINATE EXT REL 25 MG TABCR PO (09:16)
[2023-10-14] MEDS: SACUBITRIL/VALSARTAN 24-26 MG TABLET 0.5 TAB PO (09:16)
[2023-10-14] MEDS: CHOLECALCIFEROL 1,000 UNITS TABLET 4000 UNITS PO (09:16)
[2023-10-14] MEDS: SIMVASTATIN 10 MG TABLET 20 MG PO (09:17)
--- NOTE | 2023-10-14 10:58 | PC.NURSE ---
Discharge information reviewed with patient and family, verbalized understanding. Patient assisted into wheelchair and taken down to main entrance, assisted into family vehicle.
--- NOTE | 2023-10-17 09:49 | PC.NURSE ---
Discharge call back attempted, no answer
--- NOTE | 2023-10-21 07:46 | PC.NURSE ---
Unable to complete dc call back
== END 2023-10-14 10:45 | disposition home health service (06) | DRG 948 ==
PROVIDERS: Nurse Practitioner; Nurse Practitioner Acute Care; Admitting Provider Internal Medicine; Visit Provider Internal Medicine
DX: R53.1 Weakness (principal); I69.354 Hemiplegia and hemiparesis following cerebral infarction affecting left non-dominant side; M62.82 Rhabdomyolysis; R78.81 Bacteremia; I24.89 Other forms of acute ischemic heart disease; I10 Essential (primary) hypertension; E78.5 Hyperlipidemia, unspecified; M10.9 Gout, unspecified; B96.5 Pseudomonas (aeruginosa) (mallei) (pseudomallei) as the cause of diseases classified elsewhere; Z85.46 Personal history of malignant neoplasm of prostate; Z79.82 Long term (current) use of aspirin; Z87.442 Personal history of urinary calculi
CPT/HCPCS: 36415; 80048; 80053; 82550; 82565; 85027; 97110; 97161; 97165; 97530; 97535; A9270; J1650